=== PATIENT | male | born 1990 | race Two or more races ===

== ENCOUNTER 2022-06-21 08:44 | Inpatient (IN) | payer OTHER ==
[2022-06-21 09:52] VITALS: BMI 22.4
[2022-06-21] MEDS ORDERED: IBUPROFEN 600 MG TABLET (FP) PO PRN (11:51)
[2022-06-21] MEDS ORDERED: MAGNESIUM CITRATE 300 ML BOTTLE PO PRN (11:51)
[2022-06-21] MEDS ORDERED: MAG HYDROX/AL HYDROX/SIMETH 30 ML UNIT-DOSE CUP PO PRN (11:51)
[2022-06-21] MEDS ORDERED: MAGNESIUM HYDROX 2400MG/30ML ORAL SUSPENSION 30 ML CUP PO PRN (11:51)
[2022-06-21] MEDS ORDERED: chlordiazePOXIDE HCL 25 MG CAPSULE PO PRN (11:51)
[2022-06-21] MEDS ORDERED: IBUPROFEN 400 MG TABLET (FP) PO PRN (11:51)
[2022-06-21] MEDS ORDERED: BUPRENORPHINE HCL 150 MCG, BUPRENORPHINE HCL 75 MCG BC ONE (11:51)
[2022-06-21] MEDS ORDERED: ONDANSETRON *ODT* 4 MG TABLET SL PRN (11:51)
[2022-06-21] MEDS ORDERED: ACETAMINOPHEN 325 MG TABLET (FP) PO PRN ×2 (11:51)
[2022-06-21] MEDS ORDERED: LOPERAMIDE HCL 2 MG CAPSULE PO PRN (11:51)
[2022-06-21] MEDS ORDERED: BUPRENORPHINE HCL 150 MCG, BUPRENORPHINE HCL 75 MCG BC PRN (11:51)
[2022-06-21] MEDS ORDERED: DICYCLOMINE HCL 10 MG CAPSULE PO PRN (11:51)
[2022-06-21] MEDS ORDERED: BENZOCAINE/MENTHOL (CHLORASEPTIC ) LOZENGE MM PRN (11:51)
[2022-06-21] MEDS ORDERED: BISMUTH SUBSALICYLATE 524 MG/30 ML PO PRN (11:51)
[2022-06-21] MEDS ORDERED: cloNIDine HCL 0.1 MG TABLET PO ONE (12:45)
[2022-06-21] MEDS ORDERED: chlordiazePOXIDE HCL 25 MG CAPSULE ONE (12:57)
[2022-06-21] MEDS ORDERED: BUPRENORPHINE HCL 150 MCG FILM BC ONE ×2 (12:58→12:59)
[2022-06-21] MEDS ORDERED: BUPRENORPHINE HCL 75 MCG FILM BC ONE (12:59)
[2022-06-21] MEDS ORDERED: cloNIDine HCL 0.1 MG TABLET ONE (13:03)
[2022-06-21] MEDS: chlordiazePOXIDE HCL 25 MG CAPSULE PO SCH ×3 (13:10→22:26)
[2022-06-21 14:35] LABS: HEMATOCRIT 39.2 % (35.4-49); HEMOGLOBIN 13.7 GM/dL (11.7-16.9); MCH 28.3 pg (25.7-33.7); MEAN CELL VOLUME 80.9 fl (80-96); MEAN PLT VOLUME 7.9 fl (7.5-11.1); PLATELET COUNT 341 10^3/uL (134-434); RBC 4.85 M/mm3 (4.00-5.60); RDW 14.7 % (11.9-15.9); WHITE BLOOD COUNT 6.3 K/mm3 (4.0-10.0)
[2022-06-21] MEDS: hydrOXYzine PAMOATE 25 MG CAPSULE (FP) PO SCH ×3 (14:36→23:01)
[2022-06-21] MEDS: PRENATAL VITAMINS W/ FOLIC ACID TABLET (FP) PO SCH (14:37)
[2022-06-21 14:38] LABS: ALBUMIN 3.8 g/dl (3.4-5.0)
[2022-06-21] MEDS: NICOTINE POLACRILEX 2 MG GUM BUC PRN ×3 (14:38→22:28)
[2022-06-21 14:39] LABS: CALCIUM 9.4 mg/dL (8.5-10.1)
[2022-06-21 14:40] LABS: BLOOD UREA NITROGEN 28.5 mg/dL (7-18)
[2022-06-21 14:41] LABS: CREATININE 1.2 mg/dL (0.55-1.3)
[2022-06-21 14:43] LABS: BILIRUBIN,TOTAL 0.2 mg/dL (0.2-1); TOT PROT 7.2 g/dl (6.4-8.2)
[2022-06-21] MEDS ORDERED: cloNIDine HCL 0.1 MG TABLET PO PRN (15:51)
[2022-06-21] MEDS: THIAMINE HCL 100 MG TABLET (FP) PO SCH (22:28)
[2022-06-21] MEDS: MELATONIN 5 MG TABLETS PO SCH (22:28)
[2022-06-22] MEDS ORDERED: BUPRENORPHINE HCL 150 MCG, BUPRENORPHINE HCL 75 MCG BC PRN
[2022-06-22] MEDS: chlordiazePOXIDE HCL 25 MG CAPSULE PO SCH ×4 (05:26→23:42)
[2022-06-22] MEDS: hydrOXYzine PAMOATE 25 MG CAPSULE (FP) PO SCH ×3 (05:26→13:40)
[2022-06-22] MEDS: NICOTINE POLACRILEX 2 MG GUM BUC PRN ×4 (05:28→17:55)
[2022-06-22] MEDS ORDERED: BUPRENORPHINE HCL 150 MCG, BUPRENORPHINE HCL 75 MCG BC SCH (06:00)
[2022-06-22] MEDS: PRENATAL VITAMINS W/ FOLIC ACID TABLET (FP) PO SCH (10:40)
[2022-06-22] MEDS: METHOCARBAMOL 500 MG TABLET PO PRN (13:40)
[2022-06-22] MEDS ORDERED: methaDONE HCL 10 MG TABLET (FOR DETOX USE ONLY) PO ONE (16:54)
[2022-06-22] MEDS: THIAMINE HCL 100 MG TABLET (FP) PO SCH (23:42)
[2022-06-22] MEDS: MELATONIN 5 MG TABLETS PO SCH (23:42)
[2022-06-23] MEDS: chlordiazePOXIDE HCL 25 MG CAPSULE PO SCH ×4 (05:19→22:46)
[2022-06-23] MEDS: NICOTINE POLACRILEX 2 MG GUM BUC PRN ×4 (05:22→22:47)
[2022-06-23] MEDS ORDERED: BUPRENORPHINE HCL 450 MCG FILM BC SCH (06:00)
[2022-06-23] MEDS: PRENATAL VITAMINS W/ FOLIC ACID TABLET (FP) PO SCH (10:43)
[2022-06-23] MEDS: METHOCARBAMOL 500 MG TABLET PO PRN (10:44)
[2022-06-23] MEDS: THIAMINE HCL 100 MG TABLET (FP) PO SCH (22:46)
[2022-06-23] MEDS: MELATONIN 5 MG TABLETS PO SCH (22:46)
[2022-06-24] MEDS ORDERED: chlordiazePOXIDE HCL 10 MG CAPSULE PO PRN
[2022-06-24] MEDS ORDERED: BUPRENORPHINE/NALOXONE 4 MG/1 MG FILM PACKET SL SCH (06:00)
[2022-06-24] MEDS: chlordiazePOXIDE HCL 10 MG CAPSULE PO SCH ×4 (06:25→23:26)
[2022-06-24] MEDS: NICOTINE POLACRILEX 2 MG GUM BUC PRN ×4 (06:30→23:26)
[2022-06-24] MEDS ORDERED: methaDONE HCL 10 MG TABLET (FOR DETOX USE ONLY) PO ONE (10:00)
[2022-06-24] MEDS: PRENATAL VITAMINS W/ FOLIC ACID TABLET (FP) PO SCH (10:21)
[2022-06-24] MEDS: NICOTINE 10 MG CARTRIDGE (INHALER) IH PRN (13:17)
[2022-06-24] MEDS: hydrOXYzine PAMOATE 25 MG CAPSULE (FP) PO PRN (18:14)
[2022-06-24] MEDS: METHOCARBAMOL 500 MG TABLET PO PRN (18:15)
[2022-06-24] MEDS: THIAMINE HCL 100 MG TABLET (FP) PO SCH (23:25)
[2022-06-24] MEDS: MELATONIN 5 MG TABLETS PO SCH (23:25)
[2022-06-25] MEDS ORDERED: BUPRENORPHINE/NALOXONE 8 MG/2 MG FILM PACKET SL ONE (06:00)
[2022-06-25] MEDS: chlordiazePOXIDE HCL 10 MG CAPSULE PO SCH ×2 (06:28→17:45)
[2022-06-25] MEDS: NICOTINE POLACRILEX 2 MG GUM BUC PRN ×4 (06:33→17:46)
[2022-06-25] MEDS: PRENATAL VITAMINS W/ FOLIC ACID TABLET (FP) PO SCH (10:24)
[2022-06-25] MEDS: MELATONIN 5 MG TABLETS PO SCH (23:04)
[2022-06-25] MEDS: THIAMINE HCL 100 MG TABLET (FP) PO SCH (23:04)
[2022-06-25] MEDS: hydrOXYzine PAMOATE 25 MG CAPSULE (FP) PO PRN (23:06)
[2022-06-26] MEDS ORDERED: chlordiazePOXIDE HCL 10 MG CAPSULE PO ONE (05:00)
[2022-06-26] MEDS: NICOTINE POLACRILEX 2 MG GUM BUC PRN ×4 (08:56→22:15)
[2022-06-26] MEDS ORDERED: methaDONE HCL 10 MG TABLET (FOR DETOX USE ONLY) PO ONE (10:00)
[2022-06-26] MEDS: hydrOXYzine PAMOATE 25 MG CAPSULE (FP) PO PRN (10:04)
[2022-06-26] MEDS: PRENATAL VITAMINS W/ FOLIC ACID TABLET (FP) PO SCH (10:04)
[2022-06-26] MEDS: METHOCARBAMOL 500 MG TABLET PO PRN (10:05)
[2022-06-26] MEDS: NICOTINE 10 MG CARTRIDGE (INHALER) IH PRN (10:08)
[2022-06-26] MEDS: THIAMINE HCL 100 MG TABLET (FP) PO SCH (22:15)
[2022-06-26] MEDS: MELATONIN 5 MG TABLETS PO SCH (22:15)
[2022-06-27 09:43] VITALS: BP 106/51; PULSE 83; RESP 16; TEMP 97.3
[2022-06-27] MEDS: PRENATAL VITAMINS W/ FOLIC ACID TABLET (FP) PO SCH (10:07)
[2022-06-27] MEDS: NICOTINE POLACRILEX 2 MG GUM BUC PRN (10:08)
== END 2022-06-27 10:15 | disposition home or self-care (01) | DRG 773 ==
LOC: YASAS 08:44 → Y6N 14:06
PROVIDERS: ADMIT Allergy & Immunology; ATTEND Surgery
PROC: HZ2ZZZZ Detoxification Services for Substance Abuse Treatment (ICD-10-PCS; principal; 2022-06-21)
DX: F11.23 Opioid dependence with withdrawal (principal); F10.230 Alcohol dependence with withdrawal, uncomplicated; F14.20 Cocaine dependence, uncomplicated; F15.20 Other stimulant dependence, uncomplicated; F17.210 Nicotine dependence, cigarettes, uncomplicated; F41.9 Anxiety disorder, unspecified; Z20.822 Contact with and (suspected) exposure to COVID-19; Z88.6 Allergy status to analgesic agent
CPT/HCPCS: 36415; 80053; 85027; 86780; C9803-CS; U0003; U0005

== ENCOUNTER 2022-08-14 13:51 | Inpatient (IN) | payer OTHER ==
[2022-08-14 15:04] VITALS: BMI 22.1
[2022-08-14] MEDS ORDERED: ONDANSETRON *ODT* 4 MG TABLET SL PRN (15:13)
[2022-08-14] MEDS ORDERED: diazePAM 5 MG TABLET PO PRN ×2 (15:13)
[2022-08-14] MEDS ORDERED: ACETAMINOPHEN 325 MG TABLET (FP) PO PRN ×2 (15:13)
[2022-08-14] MEDS ORDERED: LOPERAMIDE HCL 2 MG CAPSULE PO PRN (15:13)
[2022-08-14] MEDS ORDERED: IBUPROFEN 400 MG TABLET (FP) PO PRN (15:13)
[2022-08-14] MEDS ORDERED: MAG HYDROX/AL HYDROX/SIMETH 30 ML UNIT-DOSE CUP PO PRN (15:13)
[2022-08-14] MEDS ORDERED: BUPRENORPHINE HCL 150 MCG, BUPRENORPHINE HCL 75 MCG BC PRN (15:13)
[2022-08-14] MEDS ORDERED: NALOXONE HCL (KLOXXADO) 8 MG SPRAY NS PRN (15:13)
[2022-08-14] MEDS ORDERED: METHOCARBAMOL 500 MG TABLET PO PRN (15:13)
[2022-08-14] MEDS ORDERED: DICYCLOMINE HCL 10 MG CAPSULE PO PRN (15:13)
[2022-08-14] MEDS ORDERED: MAGNESIUM CITRATE 300 ML BOTTLE PO PRN (15:13)
[2022-08-14] MEDS ORDERED: BISMUTH SUBSALICYLATE 524 MG/30 ML PO PRN (15:13)
[2022-08-14] MEDS ORDERED: BENZOCAINE/MENTHOL (CHLORASEPTIC ) LOZENGE MM PRN (15:13)
[2022-08-14] MEDS ORDERED: IBUPROFEN 600 MG TABLET (FP) PO PRN (15:13)
[2022-08-14] MEDS ORDERED: MAGNESIUM HYDROX 2400MG/30ML ORAL SUSPENSION 30 ML CUP PO PRN (15:13)
[2022-08-14] MEDS ORDERED: cloNIDine HCL 0.1 MG TABLET PO ONE (16:30)
[2022-08-14] MEDS ORDERED: BUPRENORPHINE HCL 150 MCG, BUPRENORPHINE HCL 75 MCG BC ONE (16:45)
[2022-08-14] MEDS ORDERED: BUPRENORPHINE HCL 150 MCG FILM BC ONE (16:55)
[2022-08-14] MEDS ORDERED: BUPRENORPHINE HCL 75 MCG FILM BC ONE (16:56)
[2022-08-14] MEDS ORDERED: cloNIDine HCL 0.1 MG TABLET ONE (16:57)
[2022-08-14] MEDS: hydrOXYzine PAMOATE 25 MG CAPSULE (FP) PO PRN ×2 (18:02→22:49)
[2022-08-14] MEDS: diazePAM 5 MG TABLET PO SCH ×2 (18:02→22:49)
[2022-08-14] MEDS: NICOTINE 14 MG/24 HOURS TOPICAL PATCH TD SCH (18:05)
[2022-08-14] MEDS: PRENATAL VITAMINS W/ FOLIC ACID TABLET (FP) PO SCH (18:05)
[2022-08-14] MEDS ORDERED: cloNIDine HCL 0.1 MG TABLET PO PRN (19:14)
[2022-08-14] MEDS: MELATONIN 5 MG TABLETS PO SCH (22:49)
[2022-08-14] MEDS: THIAMINE HCL 100 MG TABLET (FP) PO SCH (22:49)
[2022-08-14] MEDS: NICOTINE 10 MG CARTRIDGE (INHALER) IH PRN (22:51)
[2022-08-15] MEDS ORDERED: BUPRENORPHINE HCL 150 MCG, BUPRENORPHINE HCL 75 MCG BC PRN
[2022-08-15] MEDS: BUPRENORPHINE HCL 150 MCG, BUPRENORPHINE HCL 75 MCG BC SCH ×2 (05:49→17:49)
[2022-08-15] MEDS: diazePAM 5 MG TABLET PO SCH ×4 (05:49→22:15)
[2022-08-15] MEDS: PRENATAL VITAMINS W/ FOLIC ACID TABLET (FP) PO SCH (11:00)
[2022-08-15] MEDS: NICOTINE 14 MG/24 HOURS TOPICAL PATCH TD SCH (11:01)
[2022-08-15] MEDS: NICOTINE 10 MG CARTRIDGE (INHALER) IH PRN ×2 (11:05→22:18)
[2022-08-15] MEDS: NICOTINE POLACRILEX 4 MG GUM BUC PRN ×3 (15:48→22:17)
[2022-08-15] MEDS: MELATONIN 5 MG TABLETS PO SCH (22:14)
[2022-08-15] MEDS: THIAMINE HCL 100 MG TABLET (FP) PO SCH (22:15)
[2022-08-16] MEDS: diazePAM 5 MG TABLET PO SCH ×3 (05:25→21:36)
[2022-08-16] MEDS: BUPRENORPHINE HCL 450 MCG FILM BC SCH ×2 (05:25→17:01)
[2022-08-16] MEDS: NICOTINE POLACRILEX 4 MG GUM BUC PRN ×4 (08:50→22:03)
[2022-08-16] MEDS: PRENATAL VITAMINS W/ FOLIC ACID TABLET (FP) PO SCH (10:15)
[2022-08-16] MEDS: NICOTINE 14 MG/24 HOURS TOPICAL PATCH TD SCH (10:16)
[2022-08-16] MEDS: NICOTINE 10 MG CARTRIDGE (INHALER) IH PRN (10:17)
[2022-08-16] MEDS: MELATONIN 5 MG TABLETS PO SCH (21:36)
[2022-08-16] MEDS: THIAMINE HCL 100 MG TABLET (FP) PO SCH (21:36)
[2022-08-17] MEDS: diazePAM 5 MG TABLET PO SCH ×2 (05:59→17:22)
[2022-08-17] MEDS: BUPRENORPHINE/NALOXONE 4 MG/1 MG FILM PACKET SL SCH ×2 (05:59→17:22)
[2022-08-17] MEDS: NICOTINE POLACRILEX 4 MG GUM BUC PRN ×3 (06:01→17:42)
[2022-08-17] MEDS: NICOTINE 10 MG CARTRIDGE (INHALER) IH PRN (10:23)
[2022-08-17] MEDS: NICOTINE 14 MG/24 HOURS TOPICAL PATCH TD SCH (10:25)
[2022-08-17] MEDS: PRENATAL VITAMINS W/ FOLIC ACID TABLET (FP) PO SCH (10:25)
[2022-08-17 21:12] VITALS: RESP 18
[2022-08-17] MEDS: THIAMINE HCL 100 MG TABLET (FP) PO SCH (22:34)
[2022-08-17] MEDS: hydrOXYzine PAMOATE 25 MG CAPSULE (FP) PO PRN (22:34)
[2022-08-17] MEDS: MELATONIN 5 MG TABLETS PO SCH (22:34)
[2022-08-18] MEDS: hydrOXYzine PAMOATE 25 MG CAPSULE (FP) PO PRN (05:52)
[2022-08-18] MEDS ORDERED: diazePAM 5 MG TABLET PO ONE (06:00)
[2022-08-18] MEDS ORDERED: BUPRENORPHINE/NALOXONE 8 MG/2 MG FILM PACKET SL ONE (06:00)
[2022-08-18] MEDS: NICOTINE 10 MG CARTRIDGE (INHALER) IH PRN (06:03)
[2022-08-18] MEDS: NICOTINE POLACRILEX 4 MG GUM BUC PRN ×2 (06:04→10:34)
[2022-08-18 06:12] VITALS: BP 141/82; PULSE 63; TEMP 97.5
[2022-08-18] MEDS: PRENATAL VITAMINS W/ FOLIC ACID TABLET (FP) PO SCH (10:33)
[2022-08-18] MEDS: NICOTINE 14 MG/24 HOURS TOPICAL PATCH TD SCH (10:34)
== END 2022-08-18 10:48 | disposition home or self-care (01) | DRG 773 ==
LOC: YASAS 13:51 → Y6N 17:02
PROVIDERS: ADMIT Allergy & Immunology; ATTEND Surgery
PROC: HZ2ZZZZ Detoxification Services for Substance Abuse Treatment (ICD-10-PCS; principal; 2022-08-14)
DX: F11.23 Opioid dependence with withdrawal (principal); F10.230 Alcohol dependence with withdrawal, uncomplicated; F14.20 Cocaine dependence, uncomplicated; F12.20 Cannabis dependence, uncomplicated; F17.210 Nicotine dependence, cigarettes, uncomplicated; F41.9 Anxiety disorder, unspecified; F32.A Depression, unspecified; G47.00 Insomnia, unspecified; Z88.6 Allergy status to analgesic agent
CPT/HCPCS: 87811; C9803-CS; U0003; U0005

== ENCOUNTER 2023-03-07 10:06 | Inpatient (IN) | payer OTHER ==
[2023-03-07 10:42] VITALS: BMI 14.2
[2023-03-07] MEDS ORDERED: NALOXONE HCL 0.4 MG/ML VIAL IM PRN (11:15)
[2023-03-07] MEDS ORDERED: POLYETHYLENE GLYCOL (HEALTHYLAX) 3350 17 GM PACKET PO PRN (11:15)
[2023-03-07] MEDS ORDERED: BENZONATATE 200 MG CAPSULE PO PRN (11:15)
[2023-03-07] MEDS ORDERED: DICYCLOMINE HCL 10 MG CAPSULE PO PRN (11:15)
[2023-03-07] MEDS ORDERED: AMMONIUM LACTATE 12% LOTION 225 GM BOTTLE TP PRN (11:15)
[2023-03-07] MEDS ORDERED: ACETAMINOPHEN 325 MG TABLET (FP) PO PRN (11:15)
[2023-03-07] MEDS ORDERED: BENZOCAINE/MENTHOL (CHLORASEPTIC ) LOZENGE MM PRN (11:15)
[2023-03-07] MEDS ORDERED: cloNIDine HCL 0.1 MG TABLET PO ONE (11:15)
[2023-03-07] MEDS ORDERED: LOPERAMIDE HCL 2 MG CAPSULE PO PRN (11:15)
[2023-03-07] MEDS ORDERED: guaiFENesin 600 MG TABLET.ER (FP) PO PRN (11:15)
[2023-03-07] MEDS ORDERED: COLLOIDAL OATMEAL 1 BAR EACH TP PRN (11:15)
[2023-03-07] MEDS ORDERED: MAG HYDROX/AL HYDROX/SIMETH 30 ML UNIT-DOSE CUP PO PRN (11:15)
[2023-03-07] MEDS ORDERED: BUPRENORPHINE HCL 150 MCG, BUPRENORPHINE HCL 75 MCG BC ONE (11:15)
[2023-03-07] MEDS ORDERED: ONDANSETRON *ODT* 4 MG TABLET SL PRN (11:15)
[2023-03-07] MEDS ORDERED: NICOTINE 10 MG CARTRIDGE (INHALER) IH PRN (11:15)
[2023-03-07] MEDS ORDERED: MAGNESIUM HYDROX 2400MG/30ML ORAL SUSPENSION 30 ML CUP PO PRN (11:15)
[2023-03-07] MEDS ORDERED: BUPRENORPHINE HCL 150 MCG, BUPRENORPHINE HCL 75 MCG BC PRN (11:15)
[2023-03-07] MEDS ORDERED: NALOXONE HCL (KLOXXADO) 8 MG SPRAY NS PRN (11:15)
[2023-03-07] MEDS ORDERED: BUPRENORPHINE HCL 150 MCG FILM BC ONE (11:53)
[2023-03-07] MEDS ORDERED: cloNIDine HCL 0.1 MG TABLET ONE (11:54)
[2023-03-07] MEDS ORDERED: BUPRENORPHINE HCL 75 MCG FILM BC ONE (11:54)
[2023-03-07] MEDS: NICOTINE POLACRILEX 2 MG GUM BUC PRN ×2 (12:16→22:57)
[2023-03-07] MEDS ORDERED: cloNIDine HCL 0.1 MG TABLET PO PRN (15:16)
[2023-03-07] MEDS: diazePAM 5 MG TABLET PO PRN (18:00)
[2023-03-07] MEDS: THIAMINE HCL 100 MG TABLET (FP) PO SCH (22:31)
[2023-03-07] MEDS: hydrOXYzine PAMOATE 25 MG CAPSULE (FP) PO PRN (22:31)
[2023-03-07] MEDS: MELATONIN 5 MG TABLETS PO SCH (22:31)
[2023-03-08] MEDS ORDERED: BUPRENORPHINE HCL 150 MCG, BUPRENORPHINE HCL 75 MCG BC PRN
[2023-03-08] MEDS: NICOTINE POLACRILEX 2 MG GUM BUC PRN ×5 (05:08→22:12)
[2023-03-08] MEDS ORDERED: BUPRENORPHINE HCL 150 MCG, BUPRENORPHINE HCL 75 MCG BC SCH (06:00)
[2023-03-08] MEDS: hydrOXYzine PAMOATE 25 MG CAPSULE (FP) PO PRN (10:22)
[2023-03-08] MEDS: PRENATAL VITAMINS W/ FOLIC ACID TABLET (FP) PO SCH (10:22)
[2023-03-08] MEDS: diazePAM 5 MG TABLET PO PRN ×3 (10:22→22:09)
[2023-03-08] MEDS ORDERED: cloNIDine HCL 0.1 MG TABLET PO PRN (15:56)
[2023-03-08] MEDS ORDERED: methaDONE HCL 10 MG TABLET (FOR DETOX USE ONLY) PO ONE (17:15)
[2023-03-08] MEDS ORDERED: QUEtiapine FUMARATE 100 MG TABLET (FP) PO SCH (22:00)
[2023-03-08] MEDS: THIAMINE HCL 100 MG TABLET (FP) PO SCH (22:08)
[2023-03-08] MEDS: MELATONIN 5 MG TABLETS PO SCH (22:09)
[2023-03-09] MEDS: diazePAM 5 MG TABLET PO PRN (05:12)
[2023-03-09] MEDS: NICOTINE POLACRILEX 2 MG GUM BUC PRN (05:14)
[2023-03-09] MEDS ORDERED: BUPRENORPHINE HCL 450 MCG FILM BC SCH (06:00)
[2023-03-09 06:21] VITALS: TEMP 97.7
[2023-03-09 09:30] VITALS: BP 132/80; PULSE 78; RESP 18
[2023-03-09] MEDS: hydrOXYzine PAMOATE 25 MG CAPSULE (FP) PO PRN (10:34)
[2023-03-09] MEDS: PRENATAL VITAMINS W/ FOLIC ACID TABLET (FP) PO SCH (10:35)
[2023-03-10] MEDS ORDERED: BUPRENORPHINE/NALOXONE 4 MG/1 MG FILM PACKET SL SCH (06:00)
[2023-03-10] MEDS ORDERED: methaDONE HCL 10 MG TABLET (FOR DETOX USE ONLY) PO ONE (10:00)
[2023-03-11] MEDS ORDERED: BUPRENORPHINE/NALOXONE 8 MG/2 MG FILM PACKET SL ONE (06:00)
[2023-03-12] MEDS ORDERED: methaDONE HCL 10 MG TABLET (FOR DETOX USE ONLY) PO ONE (10:00)
== END 2023-03-09 10:47 | disposition left against medical advice (07) | DRG 770 ==
LOC: YASAS 10:06 → Y6N 11:23
PROVIDERS: ADMIT Allergy & Immunology; ATTEND Surgery
PROC: HZ2ZZZZ Detoxification Services for Substance Abuse Treatment (ICD-10-PCS; principal; 2023-03-07)
DX: F11.23 Opioid dependence with withdrawal (principal); F14.20 Cocaine dependence, uncomplicated; F12.20 Cannabis dependence, uncomplicated; F17.210 Nicotine dependence, cigarettes, uncomplicated; F31.9 Bipolar disorder, unspecified; F19.282 Other psychoactive substance dependence with psychoactive substance-induced sleep disorder; F19.280 Other psychoactive substance dependence with psychoactive substance-induced anxiety disorder; Z62.810 Personal history of physical and sexual abuse in childhood; Z59.01 Sheltered homelessness; Z56.0 Unemployment, unspecified; Z88.6 Allergy status to analgesic agent
CPT/HCPCS: C9803-CS; U0003; U0005

== ENCOUNTER 2023-03-29 10:11 | Inpatient (IN) | payer OTHER ==
[2023-03-29 10:36] VITALS: BMI 23.2
[2023-03-29] MEDS ORDERED: NALOXONE HCL 0.4 MG/ML VIAL IM PRN (11:21)
[2023-03-29] MEDS ORDERED: ONDANSETRON *ODT* 4 MG TABLET SL PRN (11:21)
[2023-03-29] MEDS ORDERED: LOPERAMIDE HCL 2 MG CAPSULE PO PRN (11:21)
[2023-03-29] MEDS ORDERED: P-EPHED 60MG/TRIPROLIDI 2.5MG TABLET PO PRN (11:21)
[2023-03-29] MEDS ORDERED: POLYETHYLENE GLYCOL (HEALTHYLAX) 3350 17 GM PACKET PO PRN (11:21)
[2023-03-29] MEDS ORDERED: ACETAMINOPHEN 325 MG TABLET (FP) PO PRN (11:21)
[2023-03-29] MEDS ORDERED: BENZOCAINE/MENTHOL (CHLORASEPTIC ) LOZENGE MM PRN (11:21)
[2023-03-29] MEDS ORDERED: BENZONATATE 200 MG CAPSULE PO PRN (11:21)
[2023-03-29] MEDS ORDERED: MAGNESIUM HYDROX 2400MG/30ML ORAL SUSPENSION 30 ML CUP PO PRN (11:21)
[2023-03-29] MEDS ORDERED: DICYCLOMINE HCL 10 MG CAPSULE PO PRN (11:21)
[2023-03-29] MEDS ORDERED: guaiFENesin 600 MG TABLET.ER (FP) PO PRN (11:21)
[2023-03-29] MEDS ORDERED: NICOTINE 10 MG CARTRIDGE (INHALER) IH PRN (11:21)
[2023-03-29] MEDS ORDERED: NALOXONE HCL (KLOXXADO) 8 MG SPRAY NS PRN (11:21)
[2023-03-29] MEDS: BACITRACIN 0.9 GM PACKET TP SCH ×3 (12:51→23:15)
[2023-03-29] MEDS: NICOTINE POLACRILEX 4 MG GUM BUC PRN ×3 (13:30→22:32)
[2023-03-29] MEDS: hydrOXYzine PAMOATE 25 MG CAPSULE (FP) PO PRN (22:31)
[2023-03-29] MEDS: THIAMINE HCL 100 MG TABLET (FP) PO SCH (22:31)
[2023-03-29] MEDS: METHOCARBAMOL 500 MG TABLET PO PRN (22:31)
[2023-03-29] MEDS: MELATONIN 5 MG TABLETS PO PRN (22:31)
[2023-03-30] MEDS: PRENATAL VITAMINS W/ FOLIC ACID TABLET (FP) PO SCH (10:47)
[2023-03-30] MEDS: BACITRACIN 0.9 GM PACKET TP SCH ×2 (10:47→22:26)
[2023-03-30] MEDS: METHOCARBAMOL 500 MG TABLET PO PRN ×2 (13:17→22:25)
[2023-03-30] MEDS: hydrOXYzine PAMOATE 25 MG CAPSULE (FP) PO PRN (13:17)
[2023-03-30] MEDS: cloNIDine HCL 0.1 MG TABLET PO PRN ×2 (13:18→17:55)
[2023-03-30] MEDS: NICOTINE POLACRILEX 4 MG GUM BUC PRN ×3 (13:19→22:26)
[2023-03-30] MEDS ORDERED: methaDONE HCL 10 MG TABLET (FOR DETOX USE ONLY) PO ONE (18:45)
[2023-03-30] MEDS: THIAMINE HCL 100 MG TABLET (FP) PO SCH (22:25)
[2023-03-30] MEDS: MELATONIN 5 MG TABLETS PO PRN (22:25)
[2023-03-30] MEDS: diazePAM 5 MG TABLET PO PRN (22:25)
[2023-03-31] MEDS: NICOTINE POLACRILEX 4 MG GUM BUC PRN ×5 (09:15→21:26)
[2023-03-31] MEDS: BACITRACIN 0.9 GM PACKET TP SCH ×2 (10:25→22:07)
[2023-03-31] MEDS: PRENATAL VITAMINS W/ FOLIC ACID TABLET (FP) PO SCH (10:25)
[2023-03-31] MEDS: METHOCARBAMOL 500 MG TABLET PO PRN ×2 (10:25→22:06)
[2023-03-31 11:33] LABS: BASO % 0.4 % (0-2.0); EOS % 0.8 % (0-4.5); HEMATOCRIT 42.1 % (35.4-49); HEMOGLOBIN 14.2 GM/dL (11.7-16.9); LYMPH % 25.4 % (8-40); MCH 26.8 pg (25.7-33.7); MCHC 33.7 g/dl (32.0-35.9); MEAN CELL VOLUME 79.5 fl (80-96); MEAN PLT VOLUME 7.8 fl (7.5-11.1); MONO % 3.9 % (3.8-10.2); NEUT % 69.5 % (42.8-82.8); PLATELET COUNT 354 10^3/uL (134-434); RBC 5.29 M/mm3 (4.00-5.60); RDW 15.5 % (11.9-15.9); WHITE BLOOD COUNT 11.2 K/mm3 (4.0-10.0)
[2023-03-31 11:41] LABS: POTASSIUM 4.1 mmol/L (3.5-5.1)
[2023-03-31 11:44] LABS: ALBUMIN 3.8 g/dl (3.4-5.0); BLOOD UREA NITROGEN 12.8 mg/dL (7-18); CALCIUM 9.9 mg/dL (8.5-10.1)
[2023-03-31 11:48] LABS: CREATININE 0.9 mg/dL (0.55-1.3)
[2023-03-31 11:50] LABS: TOT PROT 7.5 g/dl (6.4-8.2)
[2023-03-31] MEDS: diazePAM 5 MG TABLET PO PRN ×3 (12:08→22:07)
[2023-03-31] MEDS: cloNIDine HCL 0.1 MG TABLET PO PRN (12:08)
[2023-03-31] MEDS: MAG HYDROX/AL HYDROX/SIMETH 30 ML UNIT-DOSE CUP PO PRN (21:23)
[2023-03-31] MEDS: THIAMINE HCL 100 MG TABLET (FP) PO SCH (22:06)
[2023-04-01] MEDS: NICOTINE POLACRILEX 4 MG GUM BUC PRN ×7 (00:37→22:31)
[2023-04-01] MEDS: METHOCARBAMOL 500 MG TABLET PO PRN ×3 (05:42→22:30)
[2023-04-01] MEDS: diazePAM 5 MG TABLET PO PRN ×4 (05:42→22:29)
[2023-04-01] MEDS: MAG HYDROX/AL HYDROX/SIMETH 30 ML UNIT-DOSE CUP PO PRN (09:08)
[2023-04-01] MEDS ORDERED: methaDONE HCL 10 MG TABLET (FOR DETOX USE ONLY) PO ONE (10:00)
[2023-04-01] MEDS: BACITRACIN 0.9 GM PACKET TP SCH ×2 (10:14→22:25)
[2023-04-01] MEDS: PRENATAL VITAMINS W/ FOLIC ACID TABLET (FP) PO SCH (10:14)
[2023-04-01] MEDS: cloNIDine HCL 0.1 MG TABLET PO PRN ×2 (11:02→17:09)
[2023-04-01] MEDS: hydrOXYzine PAMOATE 25 MG CAPSULE (FP) PO PRN (12:40)
[2023-04-01] MEDS: THIAMINE HCL 100 MG TABLET (FP) PO SCH (22:26)
[2023-04-01] MEDS: MELATONIN 5 MG TABLETS PO PRN (22:26)
[2023-04-01] MEDS ORDERED: QUEtiapine FUMARATE 100 MG TABLET (FP) PO ONE (23:30)
[2023-04-02] MEDS: NICOTINE POLACRILEX 4 MG GUM BUC PRN ×6 (03:50→22:25)
[2023-04-02] MEDS: hydrOXYzine PAMOATE 25 MG CAPSULE (FP) PO PRN ×2 (03:52→09:44)
[2023-04-02] MEDS: PRENATAL VITAMINS W/ FOLIC ACID TABLET (FP) PO SCH (09:39)
[2023-04-02] MEDS: BACITRACIN 0.9 GM PACKET TP SCH ×2 (09:39→22:25)
[2023-04-02] MEDS: METHOCARBAMOL 500 MG TABLET PO PRN ×2 (09:44→18:56)
[2023-04-02] MEDS: MAG HYDROX/AL HYDROX/SIMETH 30 ML UNIT-DOSE CUP PO PRN (10:39)
[2023-04-02] MEDS: diphenhydrAMINE HCL 50 MG CAPSULE PO PRN ×2 (11:43→22:25)
[2023-04-02] MEDS: cloNIDine HCL 0.1 MG TABLET PO PRN (18:56)
[2023-04-02] MEDS: guaiFENesin 600 MG TABLET.ER (FP) PO SCH (22:24)
[2023-04-02] MEDS: THIAMINE HCL 100 MG TABLET (FP) PO SCH (22:24)
[2023-04-03] MEDS: NICOTINE POLACRILEX 4 MG GUM BUC PRN ×4 (00:58→18:22)
[2023-04-03] MEDS: METHOCARBAMOL 500 MG TABLET PO PRN ×2 (01:02→12:13)
[2023-04-03] MEDS: cloNIDine HCL 0.1 MG TABLET PO PRN (05:52)
[2023-04-03] MEDS ORDERED: methaDONE HCL 10 MG TABLET (FOR DETOX USE ONLY) PO ONE (10:00)
[2023-04-03] MEDS: BACITRACIN 0.9 GM PACKET TP SCH ×2 (10:22→22:08)
[2023-04-03] MEDS: PRENATAL VITAMINS W/ FOLIC ACID TABLET (FP) PO SCH (10:22)
[2023-04-03] MEDS: guaiFENesin 600 MG TABLET.ER (FP) PO SCH ×2 (10:22→22:08)
[2023-04-03 17:48] VITALS: RESP 18; TEMP 98.6
[2023-04-03 21:21] VITALS: PULSE 72
[2023-04-03] MEDS: diphenhydrAMINE HCL 50 MG CAPSULE PO PRN (22:08)
[2023-04-03] MEDS: THIAMINE HCL 100 MG TABLET (FP) PO SCH (22:08)
[2023-04-04] MEDS: NICOTINE POLACRILEX 4 MG GUM BUC PRN ×2 (01:04→08:17)
[2023-04-04 07:08] VITALS: BP 111/66
[2023-04-04] MEDS ORDERED: QUEtiapine FUMARATE 100 MG TABLET (FP) PO SCH (22:00)
== END 2023-04-04 10:00 | disposition home or self-care (01) | DRG 773 ==
LOC: YASAS 10:11 → Y6N 11:59
PROVIDERS: ADMIT Allergy & Immunology; ATTEND Surgery
PROC: HZ2ZZZZ Detoxification Services for Substance Abuse Treatment (ICD-10-PCS; principal; 2023-03-29)
DX: F11.23 Opioid dependence with withdrawal (principal); F10.230 Alcohol dependence with withdrawal, uncomplicated; F14.20 Cocaine dependence, uncomplicated; F15.20 Other stimulant dependence, uncomplicated; F12.20 Cannabis dependence, uncomplicated; F17.213 Nicotine dependence, cigarettes, with withdrawal; F19.282 Other psychoactive substance dependence with psychoactive substance-induced sleep disorder; F19.280 Other psychoactive substance dependence with psychoactive substance-induced anxiety disorder; F31.9 Bipolar disorder, unspecified; Z62.810 Personal history of physical and sexual abuse in childhood; Z88.6 Allergy status to analgesic agent
CPT/HCPCS: 36415; 80053; 85025; 86780; 87635; 87811

== ENCOUNTER 2023-07-03 09:30 | Inpatient (IN) | payer OTHER ==
[2023-07-03 10:08] VITALS: BMI 22.9
[2023-07-03] MEDS ORDERED: LOPERAMIDE HCL 2 MG CAPSULE PO PRN (10:54)
[2023-07-03] MEDS ORDERED: DICYCLOMINE HCL 10 MG CAPSULE PO PRN (10:54)
[2023-07-03] MEDS ORDERED: POLYETHYLENE GLYCOL (HEALTHYLAX) 3350 17 GM PACKET PO PRN (10:54)
[2023-07-03] MEDS ORDERED: NALOXONE HCL 0.4 MG/ML VIAL IM PRN (10:54)
[2023-07-03] MEDS ORDERED: ONDANSETRON *ODT* 4 MG TABLET SL PRN (10:54)
[2023-07-03] MEDS ORDERED: guaiFENesin 600 MG TABLET.ER (FP) PO PRN (10:54)
[2023-07-03] MEDS ORDERED: BENZONATATE 200 MG CAPSULE PO PRN (10:54)
[2023-07-03] MEDS ORDERED: NALOXONE HCL (KLOXXADO) 8 MG SPRAY NS PRN (10:54)
[2023-07-03] MEDS ORDERED: ACETAMINOPHEN 325 MG TABLET (FP) PO PRN (10:54)
[2023-07-03] MEDS ORDERED: MAGNESIUM HYDROX 2400MG/30ML ORAL SUSPENSION 30 ML CUP PO PRN (10:54)
[2023-07-03] MEDS ORDERED: P-EPHED 60MG/TRIPROLIDI 2.5MG TABLET PO PRN (10:54)
[2023-07-03] MEDS ORDERED: BENZOCAINE/MENTHOL (CHLORASEPTIC ) LOZENGE MM PRN (10:54)
[2023-07-03] MEDS ORDERED: MELATONIN 5 MG TABLETS PO SCH (22:00)
[2023-07-03] MEDS: hydrOXYzine PAMOATE 25 MG CAPSULE (FP) PO PRN (22:17)
[2023-07-03] MEDS: METHOCARBAMOL 500 MG TABLET PO PRN (22:18)
[2023-07-03] MEDS: NICOTINE POLACRILEX 2 MG GUM BUC PRN (22:18)
[2023-07-03] MEDS: THIAMINE HCL 100 MG TABLET (FP) PO SCH (22:18)
[2023-07-04] MEDS: NICOTINE POLACRILEX 2 MG GUM BUC PRN ×3 (10:28→15:24)
[2023-07-04] MEDS: PRENATAL VITAMINS W/ FOLIC ACID TABLET (FP) PO SCH (10:29)
[2023-07-04] MEDS ORDERED: methaDONE HCL 10 MG TABLET (FOR DETOX USE ONLY) PO ONE (12:15)
[2023-07-04 15:05] LABS: HEMATOCRIT 42.7 % (35.4-49); HEMOGLOBIN 14.4 GM/dL (11.7-16.9); MCHC 33.7 g/dl (32.0-35.9); MEAN PLT VOLUME 8.6 fl (7.5-11.1); PLATELET COUNT 330 10^3/uL (134-434); RBC 5.34 M/mm3 (4.00-5.60); WHITE BLOOD COUNT 11.2 K/mm3 (4.0-10.0)
[2023-07-04 15:10] LABS: POTASSIUM 4.3 mmol/L (3.5-5.1)
[2023-07-04 15:17] LABS: ALBUMIN 4.3 g/dl (3.4-5.0); BLOOD UREA NITROGEN 13.3 mg/dL (7-18); CALCIUM 9.9 mg/dL (8.5-10.1)
[2023-07-04 15:21] LABS: BILIRUBIN,TOTAL 0.5 mg/dL (0.2-1); TOT PROT 7.8 g/dl (6.4-8.2)
[2023-07-04] MEDS: NICOTINE POLACRILEX 4 MG GUM BUC PRN (20:50)
[2023-07-04] MEDS: hydrOXYzine PAMOATE 25 MG CAPSULE (FP) PO PRN (22:20)
[2023-07-04] MEDS: METHOCARBAMOL 500 MG TABLET PO PRN (22:20)
[2023-07-04] MEDS: QUEtiapine FUMARATE 100 MG TABLET (FP) PO SCH (22:20)
[2023-07-04] MEDS: THIAMINE HCL 100 MG TABLET (FP) PO SCH (22:20)
[2023-07-05] MEDS: PRENATAL VITAMINS W/ FOLIC ACID TABLET (FP) PO SCH (10:24)
[2023-07-05] MEDS: NICOTINE POLACRILEX 4 MG GUM BUC PRN ×5 (10:25→21:27)
[2023-07-05] MEDS: MAG HYDROX/AL HYDROX/SIMETH 30 ML UNIT-DOSE CUP PO PRN ×2 (10:44→16:34)
[2023-07-05] MEDS: hydrOXYzine PAMOATE 25 MG CAPSULE (FP) PO PRN (17:37)
[2023-07-05] MEDS: cloNIDine HCL 0.1 MG TABLET PO PRN (22:19)
[2023-07-05] MEDS: QUEtiapine FUMARATE 100 MG TABLET (FP) PO SCH (22:19)
[2023-07-05] MEDS: THIAMINE HCL 100 MG TABLET (FP) PO SCH (22:19)
[2023-07-06] MEDS: cloNIDine HCL 0.1 MG TABLET PO PRN ×3 (06:29→19:45)
[2023-07-06] MEDS: hydrOXYzine PAMOATE 25 MG CAPSULE (FP) PO PRN ×2 (06:29→19:45)
[2023-07-06] MEDS: NICOTINE POLACRILEX 4 MG GUM BUC PRN ×6 (08:47→23:42)
[2023-07-06 09:27] LABS: HEMATOCRIT 38.4 % (35.4-49); HEMOGLOBIN 12.9 GM/dL (11.7-16.9); MCH 27.2 pg (25.7-33.7); MCHC 33.6 g/dl (32.0-35.9); MEAN CELL VOLUME 80.8 fl (80-96); MEAN PLT VOLUME 7.8 fl (7.5-11.1); PLATELET COUNT 295 10^3/uL (134-434); RBC 4.75 M/mm3 (4.00-5.60); RDW 14.9 % (11.9-15.9); WHITE BLOOD COUNT 7.7 K/mm3 (4.0-10.0)
[2023-07-06] MEDS ORDERED: methaDONE HCL 10 MG TABLET (FOR DETOX USE ONLY) PO ONE (10:00)
[2023-07-06] MEDS: PRENATAL VITAMINS W/ FOLIC ACID TABLET (FP) PO SCH (10:22)
[2023-07-06] MEDS: MAG HYDROX/AL HYDROX/SIMETH 30 ML UNIT-DOSE CUP PO PRN ×2 (12:43→22:44)
[2023-07-06] MEDS: THIAMINE HCL 100 MG TABLET (FP) PO SCH (22:43)
[2023-07-06] MEDS: QUEtiapine FUMARATE 100 MG TABLET (FP) PO SCH (22:43)
[2023-07-06] MEDS: METHOCARBAMOL 500 MG TABLET PO PRN (22:43)
[2023-07-07] MEDS: NICOTINE POLACRILEX 4 MG GUM BUC PRN ×7 (02:55→22:19)
[2023-07-07] MEDS: hydrOXYzine PAMOATE 25 MG CAPSULE (FP) PO PRN ×2 (09:30→17:31)
[2023-07-07] MEDS: METHOCARBAMOL 500 MG TABLET PO PRN ×2 (09:32→17:31)
[2023-07-07] MEDS: PRENATAL VITAMINS W/ FOLIC ACID TABLET (FP) PO SCH (10:11)
[2023-07-07] MEDS: MAG HYDROX/AL HYDROX/SIMETH 30 ML UNIT-DOSE CUP PO PRN (10:12)
[2023-07-07] MEDS: QUEtiapine FUMARATE 100 MG TABLET (FP) PO SCH (22:17)
[2023-07-07] MEDS: THIAMINE HCL 100 MG TABLET (FP) PO SCH (22:17)
[2023-07-08] MEDS: NICOTINE POLACRILEX 4 MG GUM BUC PRN ×5 (03:17→22:09)
[2023-07-08] MEDS: hydrOXYzine PAMOATE 25 MG CAPSULE (FP) PO PRN ×2 (03:17→17:22)
[2023-07-08] MEDS ORDERED: methaDONE HCL 10 MG TABLET (FOR DETOX USE ONLY) PO ONE (10:00)
[2023-07-08] MEDS: PRENATAL VITAMINS W/ FOLIC ACID TABLET (FP) PO SCH (10:08)
[2023-07-08] MEDS: METHOCARBAMOL 500 MG TABLET PO PRN ×2 (10:10→17:22)
[2023-07-08 17:09] VITALS: RESP 18
[2023-07-08] MEDS: THIAMINE HCL 100 MG TABLET (FP) PO SCH (22:08)
[2023-07-08] MEDS: QUEtiapine FUMARATE 100 MG TABLET (FP) PO SCH (22:08)
[2023-07-09] MEDS: METHOCARBAMOL 500 MG TABLET PO PRN (05:35)
[2023-07-09] MEDS: NICOTINE POLACRILEX 4 MG GUM BUC PRN (08:45)
[2023-07-09 09:48] VITALS: BP 116/72; PULSE 77; TEMP 98
[2023-07-09] MEDS: PRENATAL VITAMINS W/ FOLIC ACID TABLET (FP) PO SCH (10:01)
== END 2023-07-09 09:55 | disposition home or self-care (01) | DRG 773 ==
LOC: YASAS 09:30 → Y3N 11:20
PROVIDERS: ADMIT Allergy & Immunology; ATTEND Surgery
PROC: HZ2ZZZZ Detoxification Services for Substance Abuse Treatment (ICD-10-PCS; principal; 2023-07-03)
DX: F11.23 Opioid dependence with withdrawal (principal); F14.20 Cocaine dependence, uncomplicated; F17.210 Nicotine dependence, cigarettes, uncomplicated; F19.282 Other psychoactive substance dependence with psychoactive substance-induced sleep disorder; F31.9 Bipolar disorder, unspecified; D72.829 Elevated white blood cell count, unspecified; Z62.810 Personal history of physical and sexual abuse in childhood; Z88.6 Allergy status to analgesic agent
CPT/HCPCS: 36415; 80053; 85027; 86780; 87635; 87811; 93005; 93010

== ENCOUNTER 2023-08-30 12:09 | Inpatient (IN) | payer OTHER ==
[2023-08-30 12:39] VITALS: BMI 25.0
[2023-08-30] MEDS ORDERED: BUPRENORPHINE HCL 150 MCG, BUPRENORPHINE HCL 75 MCG BC PRN (13:00)
[2023-08-30] MEDS ORDERED: guaiFENesin 600 MG TABLET.ER (FP) PO PRN (13:00)
[2023-08-30] MEDS ORDERED: ONDANSETRON *ODT* 4 MG TABLET SL PRN (13:00)
[2023-08-30] MEDS ORDERED: DICYCLOMINE HCL 10 MG CAPSULE PO PRN (13:00)
[2023-08-30] MEDS ORDERED: NALOXONE HCL 0.4 MG/ML VIAL IM PRN (13:00)
[2023-08-30] MEDS ORDERED: ACETAMINOPHEN 325 MG TABLET (FP) PO PRN (13:00)
[2023-08-30] MEDS ORDERED: POLYETHYLENE GLYCOL (HEALTHYLAX) 3350 17 GM PACKET PO PRN (13:00)
[2023-08-30] MEDS ORDERED: BENZOCAINE/MENTHOL (CHLORASEPTIC ) LOZENGE MM PRN (13:00)
[2023-08-30] MEDS ORDERED: NALOXONE HCL (KLOXXADO) 8 MG SPRAY NS PRN (13:00)
[2023-08-30] MEDS ORDERED: BENZONATATE 200 MG CAPSULE PO PRN (13:00)
[2023-08-30] MEDS ORDERED: MAGNESIUM HYDROX 2400MG/30ML ORAL SUSPENSION 30 ML CUP PO PRN (13:00)
[2023-08-30] MEDS ORDERED: IBUPROFEN 600 MG TABLET (FP) PO PRN (13:00)
[2023-08-30] MEDS ORDERED: IBUPROFEN 400 MG TABLET (FP) PO PRN (13:00)
[2023-08-30] MEDS ORDERED: BISMUTH SUBSALICYLATE 524 MG/30 ML PO PRN (13:00)
[2023-08-30] MEDS ORDERED: LOPERAMIDE HCL 2 MG CAPSULE PO PRN (13:00)
[2023-08-30] MEDS ORDERED: cloNIDine HCL 0.1 MG TABLET PO ONE (13:30)
[2023-08-30] MEDS ORDERED: BUPRENORPHINE HCL 150 MCG, BUPRENORPHINE HCL 75 MCG BC ONE (13:30)
[2023-08-30] MEDS ORDERED: BUPRENORPHINE HCL 75 MCG FILM BC ONE (14:00)
[2023-08-30] MEDS ORDERED: BUPRENORPHINE HCL 150 MCG FILM BC ONE (14:00)
[2023-08-30] MEDS ORDERED: NICOTINE POLACRILEX 4 MG GUM BUC ONE (14:01)
[2023-08-30] MEDS ORDERED: cloNIDine HCL 0.1 MG TABLET ONE (14:01)
[2023-08-30] MEDS: NICOTINE POLACRILEX 4 MG LOZENGE BC PRN ×3 (14:05→22:46)
[2023-08-30] MEDS: THIAMINE HCL 100 MG TABLET (FP) PO SCH (22:41)
[2023-08-30] MEDS: diazePAM 5 MG TABLET PO PRN (22:41)
[2023-08-30] MEDS: MELATONIN 5 MG TABLETS PO SCH (22:41)
[2023-08-30] MEDS: QUEtiapine FUMARATE 100 MG TABLET (FP) PO SCH (22:43)
[2023-08-30] MEDS: MIRTAZAPINE 15 MG TABLET (FP) PO SCH (22:43)
[2023-08-31] MEDS ORDERED: BUPRENORPHINE HCL 150 MCG, BUPRENORPHINE HCL 75 MCG BC PRN
[2023-08-31] MEDS: METHOCARBAMOL 500 MG TABLET PO PRN ×2 (05:41→22:08)
[2023-08-31] MEDS: hydrOXYzine PAMOATE 25 MG CAPSULE (FP) PO PRN ×2 (05:41→14:07)
[2023-08-31] MEDS: BUPRENORPHINE HCL 150 MCG, BUPRENORPHINE HCL 75 MCG BC SCH ×2 (05:43→17:30)
[2023-08-31] MEDS: NICOTINE POLACRILEX 4 MG LOZENGE BC PRN ×4 (05:43→22:10)
[2023-08-31] MEDS: PRENATAL VITAMINS W/ FOLIC ACID TABLET (FP) PO SCH (11:09)
[2023-08-31] MEDS: diazePAM 5 MG TABLET PO PRN (14:06)
[2023-08-31] MEDS: cloNIDine HCL 0.1 MG TABLET PO PRN (17:30)
[2023-08-31] MEDS: MAG HYDROX/AL HYDROX/SIMETH 30 ML UNIT-DOSE CUP PO PRN (18:14)
[2023-08-31] MEDS: QUEtiapine FUMARATE 100 MG TABLET (FP) PO SCH (22:08)
[2023-08-31] MEDS: MELATONIN 5 MG TABLETS PO SCH (22:08)
[2023-08-31] MEDS: THIAMINE HCL 100 MG TABLET (FP) PO SCH (22:08)
[2023-08-31] MEDS: MIRTAZAPINE 15 MG TABLET (FP) PO SCH (22:08)
[2023-09-01] MEDS: BUPRENORPHINE HCL 450 MCG FILM BC SCH ×2 (05:47→17:09)
[2023-09-01] MEDS: NICOTINE POLACRILEX 4 MG LOZENGE BC PRN ×5 (05:48→20:33)
[2023-09-01] MEDS: PRENATAL VITAMINS W/ FOLIC ACID TABLET (FP) PO SCH (10:37)
[2023-09-01] MEDS: METHOCARBAMOL 500 MG TABLET PO PRN (12:32)
[2023-09-01] MEDS: hydrOXYzine PAMOATE 25 MG CAPSULE (FP) PO PRN (12:32)
[2023-09-01] MEDS: MAG HYDROX/AL HYDROX/SIMETH 30 ML UNIT-DOSE CUP PO PRN ×2 (14:10→21:33)
[2023-09-01] MEDS: MIRTAZAPINE 15 MG TABLET (FP) PO SCH (21:33)
[2023-09-01] MEDS: QUEtiapine FUMARATE 100 MG TABLET (FP) PO SCH (21:33)
[2023-09-01] MEDS: cloNIDine HCL 0.1 MG TABLET PO PRN (21:33)
[2023-09-01] MEDS: MELATONIN 5 MG TABLETS PO SCH (21:33)
[2023-09-01] MEDS: THIAMINE HCL 100 MG TABLET (FP) PO SCH (21:33)
[2023-09-02] MEDS: BUPRENORPHINE/NALOXONE 4 MG/1 MG FILM PACKET SL SCH ×2 (05:43→17:15)
[2023-09-02] MEDS: NICOTINE POLACRILEX 4 MG LOZENGE BC PRN ×6 (05:44→22:15)
[2023-09-02] MEDS: hydrOXYzine PAMOATE 25 MG CAPSULE (FP) PO PRN ×2 (05:45→10:16)
[2023-09-02] MEDS: PRENATAL VITAMINS W/ FOLIC ACID TABLET (FP) PO SCH (10:14)
[2023-09-02] MEDS: METHOCARBAMOL 500 MG TABLET PO PRN (10:18)
[2023-09-02] MEDS: cloNIDine HCL 0.1 MG TABLET PO PRN (15:28)
[2023-09-02 20:54] VITALS: RESP 16
[2023-09-02] MEDS: MELATONIN 5 MG TABLETS PO SCH (22:13)
[2023-09-02] MEDS: THIAMINE HCL 100 MG TABLET (FP) PO SCH (22:13)
[2023-09-02] MEDS: QUEtiapine FUMARATE 100 MG TABLET (FP) PO SCH (22:13)
[2023-09-02] MEDS: MIRTAZAPINE 15 MG TABLET (FP) PO SCH (22:13)
[2023-09-03] MEDS: NICOTINE POLACRILEX 4 MG LOZENGE BC PRN ×2 (05:37→10:21)
[2023-09-03] MEDS: METHOCARBAMOL 500 MG TABLET PO PRN (05:40)
[2023-09-03] MEDS: hydrOXYzine PAMOATE 25 MG CAPSULE (FP) PO PRN (05:40)
[2023-09-03] MEDS ORDERED: BUPRENORPHINE/NALOXONE 8 MG/2 MG FILM PACKET SL ONE (06:00)
[2023-09-03 09:40] VITALS: BP 132/72; PULSE 68; TEMP 97.8
[2023-09-03] MEDS: PRENATAL VITAMINS W/ FOLIC ACID TABLET (FP) PO SCH (10:21)
== END 2023-09-03 11:22 | disposition other institution (70) | DRG 773 ==
LOC: YASAS 12:09 → Y6N 13:37
PROVIDERS: ADMIT Allergy & Immunology; ATTEND Surgery
PROC: HZ2ZZZZ Detoxification Services for Substance Abuse Treatment (ICD-10-PCS; principal; 2023-08-30)
DX: F11.23 Opioid dependence with withdrawal (principal); F10.20 Alcohol dependence, uncomplicated; F17.210 Nicotine dependence, cigarettes, uncomplicated; F19.24 Other psychoactive substance dependence with psychoactive substance-induced mood disorder; F41.9 Anxiety disorder, unspecified; F43.10 Post-traumatic stress disorder, unspecified; G47.00 Insomnia, unspecified; Z88.6 Allergy status to analgesic agent
CPT/HCPCS: 87635; 87811

== ENCOUNTER 2023-09-03 11:23 | Inpatient (IN) | payer OTHER ==
[2023-09-03] MEDS ORDERED: ACETAMINOPHEN 325 MG TABLET (FP) PO PRN (13:26)
[2023-09-03] MEDS ORDERED: hydrOXYzine PAMOATE 25 MG CAPSULE (FP) PO PRN (13:26)
[2023-09-03] MEDS ORDERED: guaiFENesin 600 MG TABLET.ER (FP) PO PRN (13:26)
[2023-09-03] MEDS ORDERED: BENZOCAINE/MENTHOL (CHLORASEPTIC ) LOZENGE MM PRN (13:26)
[2023-09-03] MEDS ORDERED: MAG HYDROX/AL HYDROX/SIMETH 30 ML UNIT-DOSE CUP PO PRN (13:26)
[2023-09-03] MEDS ORDERED: NALOXONE HCL (KLOXXADO) 8 MG SPRAY NS PRN (13:26)
[2023-09-03] MEDS ORDERED: LOPERAMIDE HCL 2 MG CAPSULE PO PRN (13:26)
[2023-09-03] MEDS ORDERED: BENZONATATE 200 MG CAPSULE PO PRN (13:26)
[2023-09-03] MEDS ORDERED: MAGNESIUM HYDROX 2400MG/30ML ORAL SUSPENSION 30 ML CUP PO PRN (13:26)
[2023-09-03] MEDS ORDERED: IBUPROFEN 600 MG TABLET (FP) PO PRN (13:26)
[2023-09-03] MEDS ORDERED: COLLOIDAL OATMEAL 1 BAR EACH TP PRN (13:26)
[2023-09-03] MEDS ORDERED: POLYETHYLENE GLYCOL (HEALTHYLAX) 3350 17 GM PACKET PO PRN (13:26)
[2023-09-03] MEDS ORDERED: NICOTINE 14 MG/24 HOURS TOPICAL PATCH TD PRN (13:26)
[2023-09-03] MEDS ORDERED: NALOXONE HCL 0.4 MG/ML VIAL IVPUSH PRN (13:26)
[2023-09-03] MEDS ORDERED: AMMONIUM LACTATE 12% LOTION 225 GM BOTTLE TP PRN (13:26)
[2023-09-03] MEDS ORDERED: IBUPROFEN 400 MG TABLET (FP) PO PRN (13:26)
[2023-09-03] MEDS: NICOTINE POLACRILEX 4 MG GUM BUC PRN ×3 (16:02→21:28)
[2023-09-03] MEDS ORDERED: TUBERCULIN PPD 5 TU/0.1ML VIAL ID ONE (17:28)
[2023-09-03] MEDS: MELATONIN 5 MG TABLETS PO SCH (21:27)
[2023-09-03] MEDS: THIAMINE HCL 100 MG TABLET (FP) PO SCH (21:27)
[2023-09-03] MEDS: METHOCARBAMOL 500 MG TABLET PO PRN (21:28)
[2023-09-04] MEDS: NICOTINE POLACRILEX 4 MG GUM BUC PRN ×4 (02:00→15:09)
[2023-09-04] MEDS: PRENATAL VITAMINS W/ FOLIC ACID TABLET (FP) PO SCH (10:22)
[2023-09-04] MEDS: BUPRENORPHINE/NALOXONE 8 MG/2 MG FILM PACKET SL SCH ×2 (10:22→21:06)
[2023-09-04 10:55] LABS: BASO % 1.1 % (0-2.0); EOS % 4.2 % (0-4.5); HEMATOCRIT 39.5 % (35.4-49); LYMPH % 57.3 % (8-40); MCH 26.7 pg (25.7-33.7); MCHC 32.9 g/dl (32.0-35.9); MEAN CELL VOLUME 81.2 fl (80-96); MEAN PLT VOLUME 7.8 fl (7.5-11.1); MONO % 5.7 % (3.8-10.2); NEUT % 31.7 % (42.8-82.8); PLATELET COUNT 306 10^3/uL (134-434); RBC 4.87 M/mm3 (4.00-5.60); RDW 14.8 % (11.9-15.9); WHITE BLOOD COUNT 6.6 K/mm3 (4.0-10.0)
[2023-09-04 11:02] LABS: POTASSIUM 4.1 mmol/L (3.5-5.1)
[2023-09-04 11:11] LABS: ALBUMIN 3.8 g/dl (3.4-5.0); CALCIUM 9.2 mg/dL (8.5-10.1)
[2023-09-04 11:12] LABS: BLOOD UREA NITROGEN 15.8 mg/dL (7-18)
[2023-09-04 11:14] LABS: CREATININE 0.9 mg/dL (0.55-1.3)
[2023-09-04 11:15] LABS: TOT PROT 6.7 g/dl (6.4-8.2)
[2023-09-04 11:16] LABS: BILIRUBIN,TOTAL 0.3 mg/dL (0.2-1)
[2023-09-04] MEDS ORDERED: TUBERCULIN PPD 5 TU/0.1ML VIAL ID ONE (15:03)
[2023-09-04] MEDS: MELATONIN 5 MG TABLETS PO SCH (21:04)
[2023-09-04] MEDS: THIAMINE HCL 100 MG TABLET (FP) PO SCH (21:04)
[2023-09-05] MEDS: NICOTINE POLACRILEX 4 MG GUM BUC PRN ×4 (00:54→21:31)
[2023-09-05] MEDS: PRENATAL VITAMINS W/ FOLIC ACID TABLET (FP) PO SCH (09:56)
[2023-09-05] MEDS: BUPRENORPHINE/NALOXONE 8 MG/2 MG FILM PACKET SL SCH ×2 (09:56→21:11)
[2023-09-05] MEDS: THIAMINE HCL 100 MG TABLET (FP) PO SCH (21:10)
[2023-09-05] MEDS: METHOCARBAMOL 500 MG TABLET PO PRN (21:10)
[2023-09-05] MEDS: MELATONIN 5 MG TABLETS PO SCH (21:10)
[2023-09-05] MEDS ORDERED: MIRTAZAPINE 15 MG TABLET (FP) PO SCH (22:00)
[2023-09-05] MEDS ORDERED: QUEtiapine FUMARATE 100 MG TABLET (FP) PO SCH (22:00)
[2023-09-06] MEDS: NICOTINE POLACRILEX 4 MG GUM BUC PRN (07:35)
[2023-09-06 08:02] VITALS: BP 122/79; PULSE 79; RESP 17; TEMP 97.7
[2023-09-06] MEDS: PRENATAL VITAMINS W/ FOLIC ACID TABLET (FP) PO SCH (10:19)
[2023-09-06] MEDS: BUPRENORPHINE/NALOXONE 8 MG/2 MG FILM PACKET SL SCH (10:19)
== END 2023-09-06 15:55 | disposition left against medical advice (07) | DRG 772 ==
LOC: YASAS 11:23 → Y3E 11:25
PROVIDERS: ADMIT Allergy & Immunology; ATTEND Psychiatry & Neurology Pain Medicine
PROC: HZ42ZZZ Group Counseling for Substance Abuse Treatment, Cognitive-Behavioral (ICD-10-PCS; principal; 2023-09-03)
DX: F11.20 Opioid dependence, uncomplicated (principal); F10.20 Alcohol dependence, uncomplicated; F14.20 Cocaine dependence, uncomplicated; F12.20 Cannabis dependence, uncomplicated; F17.210 Nicotine dependence, cigarettes, uncomplicated; F31.9 Bipolar disorder, unspecified; F41.9 Anxiety disorder, unspecified; F43.10 Post-traumatic stress disorder, unspecified; G47.00 Insomnia, unspecified; F91.8 Other conduct disorders; Z91.199 Patient's noncompliance with other medical treatment and regimen due to unspecified reason; Z88.6 Allergy status to analgesic agent
CPT/HCPCS: 36415; 71045-TC-FY; 80053; 85025; 86803